=== PATIENT | female | born 1975 | race Caucasian/White ===

== ENCOUNTER 2021-04-06 17:57 | Emergency (ER) | payer OTHER ==
[~2021-04-06 17:57] MED LIST: BACLOFEN 10MG T10 MG PO; BUSPAR5 MG PO; LISINOPRIL-HCT1 EAC2 PO; MEDROL 4MG DOSEP4 MG PO; NAPROXEN500 MG PO; PROZAC20 MG PO; SYNTHROID125 MCG PO
[2021-04-06 19:13] LABS: BASOPHIL 0.3 % (0-2); EOSINOPHIL 0 % (0-5); HCT 39.9 % (37.0-47.0); HGB 13.8 g/dl (12.5-16.0); LYMPHOCYTE 4.1 % (15-48); MCH 32.7 pg (25.0-31.0); MCHC 34.6 g/dL (32.0-36.0); MCV 94.5 fL (78.0-100.0); MONOCYTE 4.5 % (0-12); MPV 11.4 fL (6.0-9.5); NRBC 0; PLT 296 K/uL (150-400); RBC 4.22 M/uL (4.20-5.40); RDW 13.4 % (11.5-14.0)
[2021-04-06 19:30] LABS: WBC 31.6 K/uL (4.0-10.5)
[2021-04-06 19:31] LABS: NEUTROPHIL 90.3 % (41-80)
[2021-04-06 19:46] LABS: BUN/CREAT RATIO (CALC) 25.7 RATIO; CREATININE 0.74 mg/dL (0.51-0.95); POTASSIUM 3.1 mmol/L (3.5-5.1)
[2021-04-06 20:14] LABS: ALBUMIN 4.3 g/dL (3.4-5.0); BILIRUBIN - DIRECT 0.2 mg/dL (0.00-0.20); BILIRUBIN - TOTAL 0.9 mg/dL (0.2-1.0); GLOBULIN (CALCULATION) 3.1 g/dL; TOTAL PROTEIN 7.4 g/dL (6.4-8.2)
[2021-04-06 20:59] LABS: BILIRUBIN NEGATIVE (NEGATIVE); BLOOD NEGATIVE Ery/uL (NEGATIVE); CLARITY CLEAR (CLEAR); COLOR YELLOW (YELLOW); GLUCOSE (U) NORMAL (NORMAL); LEUKOCYTES 1+ Leu/uL (NEGATIVE); NITRITE NEGATIVE (NEGATIVE); PROTEIN 1+ mg/dL (NEGATIVE)
[2021-04-06 21:02] LABS: AMPHETAMINES NEGATIVE (NEGATIVE); BARBITURATES NEGATIVE (NEGATIVE); ECSTASY (MDMA) NEGATIVE (NEGATIVE); MARIJUANA (THC) POSITIVE (NEGATIVE); METHADONE NEGATIVE (NEGATIVE); OPIATES POSITIVE (NEGATIVE); OXYCODONE NEGATIVE (NEGATIVE)
[2021-04-06 21:05] LABS: BACTERIA 1+; URINARY RBC RARE
[2021-04-06] MEDS ORDERED: ZOFRAN4 M1 PO (21:51)
[2021-04-06] MEDS ORDERED: PERCOCET 7.5/321 TAB PO (21:51)
== END 2021-04-06 22:20 | disposition home or self-care (01) ==
LOC: FER 17:57
PROVIDERS: Nurse Practitioner Family
DX: S27.0XXA Traumatic pneumothorax, initial encounter (principal); S22.42XA Multiple fractures of ribs, left side, initial encounter for closed fracture; S80.212A Abrasion, left knee, initial encounter; S40.812A Abrasion of left upper arm, initial encounter; M25.552 Pain in left hip; I10 Essential (primary) hypertension; V86.59XA Driver of other special all-terrain or other off-road motor vehicle injured in nontraffic accident, initial encounter
CPT/HCPCS: 36415; 70450; 71100; 71260; 72125; 72128; 72131; 73030; 73502; 80048; 80076; 80305; 81001; 83605; 83690; 85025; 90471; 90715; 94010; J1170; J2405; J7120; Q9967